=== PATIENT | male | born 2000 | race Caucasian/White ===

== ENCOUNTER 2024-08-18 09:43 | Emergency (ER) | payer SELFPAY ==
[~2024-08-18] VITALS: Ht 180.3 cm; Wt 72.0 kg
[2024-08-18 09:48] VITALS: BP 137/84; O2SAT 98
[2024-08-18] MEDS ORDERED: BO1 TP (10:46)
[2024-08-18] MEDS: TETANUS, DIPHTHERIA, PERTUSSIS VAC/PF 0.5ML (>10YR OLD) IM ONE (11:31)
[2024-08-18] MEDS: BACITRACIN ZINC OINT UDPKT TOP ONE (11:31)
[2024-08-18 11:33] VITALS: PULSE 68; RESP 18; TEMP 36.83628; O2SAT 99
== END 2024-08-18 11:33 | disposition home or self-care (01) ==
LOC: ER 09:43
DX: T24.201A Burn of second degree of unspecified site of right lower limb, except ankle and foot, initial encounter (principal); X18.XXXA Contact with other hot metals, initial encounter; Y93.89 Activity, other specified; Y92.89 Other specified places as the place of occurrence of the external cause; Y99.8 Other external cause status
CPT/HCPCS: 16020; 90715; 99282